=== PATIENT | female | born 1980 | race Caucasian/White ===

== ENCOUNTER 2022-12-29 18:04 | Emergency (ER) | payer OTHER ==
[~2022-12-29] VITALS: Ht 162.6 cm; Wt 56.7 kg
[2022-12-29 18:04] VITALS: BP 110/60
--- NOTE | 2022-12-29 18:10 | NUR ---
RECEIVED PT 42 YRS FEMALE WALKING IN C/O SWALLEN AND PAIN ON LOWER LEPS OPEN SORE
--- NOTE | 2022-12-29 18:20 | NUR ---
SEEN BY DR. PERLA
[2022-12-29] MEDS ORDERED: CETI-90 PO (18:31)
--- NOTE | 2022-12-29 18:35 | NUR ---
Patient discharged to home in stable condition. Written and verbal after care instructions given. Patient verbalizes understanding of instruction.
== END 2022-12-29 18:35 | disposition home or self-care (01) ==
LOC: ER 18:10
DX: K13.0 Diseases of lips (principal); T50.905A Adverse effect of unspecified drugs, medicaments and biological substances, initial encounter; Y92.89 Other specified places as the place of occurrence of the external cause

== ENCOUNTER 2023-01-02 13:59 | Emergency (ER) | payer OTHER ==
[~2023-01-02] VITALS: Ht 162.6 cm; Wt 56.7 kg
[~2023-01-02 13:59] MED LIST: CETI-90 PO
[2023-01-02 14:23] VITALS: BP 117/86
--- NOTE | 2023-01-02 15:30 | NUR ---
CALLED TO ROOM NO ANSWER.
--- NOTE | 2023-01-02 16:00 | NUR ---
CALLED TO TRIAGE,NO JOHNNAWER Addendum: 01/02/23 at 1704 by REBEKAH CALLED TO ROOM IN,NO ANSWER
--- NOTE | 2023-01-02 17:06 | NUR ---
CALLED TO ROOM IN,NO ANSWER
== END 2023-01-02 17:07 | disposition left against medical advice (07) ==
LOC: ER 14:04
DX: R20.8 Other disturbances of skin sensation (principal); Z53.21 Procedure and treatment not carried out due to patient leaving prior to being seen by health care provider